=== PATIENT | female | born 1990 | race Caucasian/White ===

== ENCOUNTER 2023-02-22 21:38 | Emergency (ER) | payer OTHER, SELFPAY ==
[2023-02-22 21:41] VITALS: BP 148/93; PULSE 122; RESP 15; TEMP 37.5; O2SAT 100; BMI 34.7
--- NOTE | 2023-02-22 22:05 | EX.ED.DYSGE1 ---
HPI History of Present Illness Chief Complaint: Flank Pain Narrative Narrative: Patient presents with fevers chills flank pain and dysuria for the past few days, she has been treated for the past week with nitrofurantoin for a UTI. She has no abdominal pain. She still has some dysuria. She feels weak. [facility] Medical History Hirschsprung's disease UTI (urinary tract infection) Home Medications cefdinir 300 mg capsule 300 mg PO BID #20 caps 02/22/23 [Rx Last Taken Unknown] hydrocodone-acetaminophen 5-325mg 5mg-325mg 1 tab PO Q4H PRN PRN Pain 3 days #10 TABLETS 02/22/23 [Rx Last Taken Unknown] Allergy/AdvReac Type Severity Reaction Status Date / Time Penicillins AdvReac Vomiting Verified 02/22/23 21:44 Family History Mother IBS (irritable bowel syndrome) Social History housing: house Smoking Status: Former smoker ROS ROS ED ROS Narrative Past medical history: Reviewed Medications: Reviewed Social history: Noncontributory Review of systems: All systems negative except as indicated General: Fever up to 101 at home Eyes: No visual changes ENT: No upper airway congestion, normal voice Neck: No neck pain Cardiovascular: No chest pain Respiratory: No shortness of breath or cough Gastrointestinal: No abdominal pain, nausea vomiting or diarrhea Genitourinary: Some dysuria Back: Bilateral flank pain Musculoskeletal: Denies myalgias no difficulty with ambulation Skin: No rash Neurological: No memory loss, confusion or any focal weakness EXAM Physical Exam Narrative Exam Narrative: Physical exam General: Patient appears uncomfortable Head: Normocephalic, Atraumatic Eyes: Conjunctiva not pale ENT: Moist mucous membranes Neck: Supple, Nontender, No lymphadenopathy Cardiovascular: Regular rate, Regular rhythm Respiratory: No distress, CTA bilaterally Abdomen: Soft, Nontender, Nondistended Back: Bilateral CVA tenderness Extremities: Nontender, No edema Skin: Normal color, No rash Const Vital Signs: 02/22/23 21:41 02/22/23 22:15 Temperature 99.5 F H Temperature Source Temporal Pulse Rate 122 H Respiratory Rate 15 Blood Pressure 148/93 H Blood Pressure Mean 111 Pulse Ox 100 Oxygen Delivery Method Room Air Room Air MDM MDM MDM Narrative Medical decision making narrative: Patient has no leukocytosis, heart rate is now significantly improved. She still has some flank pain after the Toradol and I will give her analgesia. Also send her for a CAT scan since her urinalysis is only marginal. My plan is to give her the IV Rocephin here and put her on Omnicef, I do believe she likely has pyelonephritis. CT is pending. We will change her antibiotics to Omnicef since nitrofurantoin does not have good coverage for pyelonephritis. Pending a CT she will be discharged. I talked to her boyfriend who also gives me history. Lab Data Labs: Laboratory Results - last 24 hr 02/22/23 02/22/23 02/22/23 22:20 22:40 22:40 WBC 10.0 RBC 4.50 Hgb 12.4 Hct 37.1 MCV 82.4 MCH 27.6 MCHC 33.4 RDW Std Deviation 42.9 RDW Coeff of Jonas 14.4 Plt Count 266 MPV 9.7 Immature Gran % (Auto) 0.200 Neut % (Auto) 84.5 H Lymph % (Auto) 10.0 L [place] % (Auto) 3.3 Eos % (Auto) 1.9 Baso % (Auto) 0.1 Absolute Neuts (auto) 8.4 H Absolute Lymphs (auto) 1.00 Nucleated RBC % 0 PT 13.2 INR 1.0 APTT 25.5 Sodium Potassium Chloride Carbon Dioxide Anion Gap BUN Creatinine Estim Creat Clear Calc Est GFR (MDRD) Af Amer Est GFR (MDRD) Non-Af BUN/Creatinine Ratio Glucose Calcium Total Bilirubin AST ALT Alkaline Phosphatase Total Protein Albumin Globulin Albumin/Globulin Ratio Urine Color Yellow Urine Clarity Clear Urine pH 5.0 Ur Specific [place] 1.010 Urine Protein Negative Urine Glucose (UA) Normal Urine Ketones 5 H Urine Occult Blood 25 H Urine Nitrite Negative Urine Bilirubin Negative Urine Urobilinogen Normal Ur Leukocyte Esterase Negative Urine RBC 0 SEEN Urine WBC 0-5 SEEN Ur Squamous Epith Cells 5-10 SEEN Urine Bacteria 1+ Urine Mucus 0 SEEN 02/22/23 22:40 WBC RBC Hgb Hct MCV MCH MCHC RDW Std Deviation RDW Coeff of Jonas Plt Count MPV Immature Gran % (Auto) Neut % (Auto) Lymph % (Auto) [place] % (Auto) Eos % (Auto) Baso % (Auto) Absolute Neuts (auto) Absolute Lymphs (auto) Nucleated RBC % PT INR APTT Sodium 133 L Potassium 3.9 Chloride 102 Carbon Dioxide 23.0 Anion Gap 8 BUN 8 Creatinine 1.11 H Estim Creat Clear Calc 74.08 Est GFR (MDRD) Af Amer 74 Est GFR (MDRD) Non-Af 61 BUN/Creatinine Ratio 7.2 L Glucose 108 H Calcium 9.1 Total Bilirubin 0.40 AST 13 L ALT 15 Alkaline Phosphatase 74 Total Protein 8.5 H Albumin 3.6 Globulin 4.9 H Albumin/Globulin Ratio 0.7 L Urine Color Urine Clarity Urine pH Ur Specific [place] Urine Protein Urine Glucose (UA) Urine Ketones Urine Occult Blood Urine Nitrite Urine Bilirubin Urine Urobilinogen Ur Leukocyte Esterase Urine RBC Urine WBC Ur Squamous Epith Cells Urine Bacteria Urine Mucus Discharge Plan Triage Chief Complaint: Flank Pain Other Complaint: General Illness ED Provider: Elder Funes Dx/Rx/DC Orders Clinical Impression: Acute flank pain, Pyelonephritis Instructions: Abdominal Pain, ED Pyelonephritis, Female (Adult) Prescriptions: New cefdinir 300 mg capsule 300 mg PO BID Qty: 20 0RF hydrocodone-acetaminophen 5-325 mg tablet 1 tab PO Q4H PRN PRN (Reason: Pain) 3 Days Qty: 10 0RF Primary Care Provider: Thuy Santa Referrals: Thuy Santa MD [Primary Care Provider] - 3-5 Days Disposition Disposition: Home, Self Care
[2023-02-22 22:24] LABS: Mucous, Urine 0 SEEN /hpf (<or=2+); Red Blood Cells-Urine 0 SEEN /hpf (0-5)
[2023-02-22 22:26] LABS: Color, Urine Yellow (Yellow); Glucose, Dipstick Normal (Normal); Ketone-Dipstick 5 mg/dl (Negative); Leukocyte Esterase-Dipstick Negative /ul (Negative); Nitrite-Dipstick Negative (Negative); Occult Blood-Urine 25 /ul (Negative); Protein-Dipstick Negative (Negative); Urine Bilirubin Dipstick Negative (Negative); Urine Clarity Clear (Clear); Urine Urobilinogen Normal (Normal)
[2023-02-22 22:34] LABS: Bacteria 1+ /hpf (None Seen); Squamous Epithelial Cells - UA 5-10 SEEN /hpf (5-10); White Blood Cells 0-5 SEEN /hpf (0-5)
--- NOTE | 2023-02-22 22:43 | CT_ITS ---
INDICATION: flank pain EXAMINATION: CT ABDOMEN AND PELVIS WITHOUT CONTRAST - CT Abdomen And Pelvis W/O Contrast Injection TECHNIQUE: Helically acquired images were obtained of the abdomen and pelvis without oral or IV contrast. A radiation dose optimization technique was used for this scan. IV Contrast dosage and agent: None. Oral contrast: None. COMPARISON: None. FINDINGS: LOWER CHEST: Small consolidation left lung base laterally. No pleural effusions. No cardiomegaly or pericardial effusion. LIVER: Homogeneous. No focal mass. GALLBLADDER AND BILIARY TREE: No calcified gallstones. No gallbladder distension or wall edema. No intra- or extrahepatic biliary ductal dilation. PANCREAS: No focal cystic or solid mass. SPLEEN: Normal size without focal cystic or solid mass. ADRENAL GLANDS: No nodules. KIDNEYS AND URETERS: No nephrolithiasis or hydronephrosis. PERITONEUM: No ascites or free air. BOWEL: Normal appendix. No stomach or bowel distension. No focal inflammatory change. LYMPH NODES: No enlarged mesenteric or retroperitoneal lymph nodes. VESSELS: Aorta is non-dilated. URINARY BLADDER: Unremarkable. REPRODUCTIVE ORGANS: No pelvic masses. ABDOMINAL WALL: Small fat-containing umbilical hernia. BONES: No acute or aggressive abnormality. CT/Abdomen/Pelvis without Cont IMPRESSION: Small consolidation left lung base laterally, atelectatic versus infectious. No acute findings in the abdomen or pelvis. Electronically Signed: Antwon Weeks MD at 23:48 EDT ,
--- NOTE | 2023-02-22 22:45 | ED.RN ---
BLOOD WORK DIFFICULT TO OBTAIN. PER DR RAOUL ATKINSON TO START ROCEPHIN WITHOUT DRAWING 2ND SET OF BLOOD CXRS.
[2023-02-22 22:49] LABS: Absolute Neutrophil Count 8.4 X10^3/uL (2.0-7.7); Basophil# 0.01 X10^3/uL; Basophil% 0.1 % (0-1); Eosinophil# 0.19 X10^3/uL; Eosinophils% 1.9 % (0-5); Hematocrit 37.1 % (37-47); Hemoglobin 12.4 g/dL (12.0-15.0); Mean Corp Hgb Conc 33.4 g/dL (32-36); Mean Corpuscular Hgb 27.6 pg (27.0-32.0); Mean Corpuscular Volume 82.4 fL (81-99); Mean Platelet Vol. 9.7 fl (6.2-12.0); Monocyte# 0.33 X10^3/uL; Monocyte% 3.3 % (0-10); NRBC Flagged by Analyzer 0 % (0-5); Neutrophil # 8.44 X10^3/uL (2.7-7.7); Neutrophil % 84.5 % (47-70); Platelet Count 266 K/mm3 (150-450); RBC Distribution Width CV 14.4 % (11.6-14.6); RBC Distribution Width SD 42.9 fl (35.1-43.9)
[2023-02-22] MEDS: 0.9% Normal Saline 1,000 ML 999 ML IV (22:52)
[2023-02-22] MEDS: Ceftriaxone 1 GM/50 ML BAG IV (22:52)
[2023-02-22] MEDS: Ketorolac 15 MG/ML Vial IV (22:55)
[2023-02-22 23:00] LABS: Partial Thromboplast Time 25.5 Seconds (24.1-36.2); Prothrombin Time (Protime)PT. 13.2 SECONDS (11.7-14.9)
[2023-02-22 23:05] LABS: ALB/GLOB Ratio 0.7 RATIO (0.9-2.4); AST(SGOT) 13 U/L (15-37); Alanine Aminotransfer ALT/SGPT 15 U/L (13-56); Albumin, Serum 3.6 g/dL (3.2-5.0); Alkaline Phosphatase 74 U/L (45-117); Anion Gap 8 (5-15); BUN 8 mg/dL (7-18); BUN/Creat Ratio 7.2 RATIO (10-20); Calcium,Total 9.1 mg/dL (8.5-10.1); Chloride 102 mmol/L (98-107); Creatinine, Serum 1.11 mg/dL (0.55-1.02); EST Glomerular Filtration Rate 61 mL/min (>60); Est Glom Filt Rate - Afr Amer 74 mL/min (>60); Estimated Creatinine Clearance 74.08 ml/min; Globulin 4.9 g/dL (2.2-4.2); Glucose 108 mg/dL (74-106); Potassium 3.9 mmol/L (3.5-5.1); Protein, Total 8.5 g/dL (6.4-8.2); Sodium Level 133 mmol/L (136-145)
[2023-02-22 23:10] LABS: Internal QC Validated? YES +Cl - CLEAR BKGD; Pregnancy, Urine Negative Negative
[2023-02-22 23:50] VITALS: BP 129/68; PULSE 86; RESP 25; O2SAT 95
[2023-02-22] MEDS: oxyCODONE 5 MG Tablet PO (23:58)
== END 2023-02-23 00:30 | disposition home or self-care (01) ==
PROVIDERS: Emergency Provider Emergency Medicine; PCP Student in an Organized Health Care Education/Training Program; Visit Provider Emergency Medicine
DX: R10.9 Unspecified abdominal pain (principal); N12 Tubulo-interstitial nephritis, not specified as acute or chronic; Z87.891 Personal history of nicotine dependence
CPT/HCPCS: 74176; 80053; 81001; 81025; 83605; 85025; 85610; 85730; 87040; 87086; 87088; 93005; 96365; 96375; 99284; J7030; A4216